=== PATIENT | male | born 1990 | race African-American/Black ===

== ENCOUNTER 2018-10-16 19:13 | Emergency (ER) | payer MEDICAID ==
[~2018-10-16] VITALS: Ht 182.9 cm; Wt 68.0 kg
[2018-10-16 19:44] VITALS: BP 117/73
--- NOTE | 2018-10-16 19:44 | NUR ---
ER Nurse Note: Pt came from home wtih wheelchair c/o enlarge left testicle since 10/13. Pt stated he has 10/10 pain, and "might have sat on it wrong". Pt was seen at [facility] today for same reason. ERMD at pt side; will continue to [facility].
[2018-10-16] MEDS ORDERED: HYDROcodone/Acetamin 5/325 tab ORAL ONE (19:45)
--- NOTE | 2018-10-16 20:14 | Emergency Room Report ---
History of Present Illness General Chief Complaint: Male Urogenital Problems Source: Patient Present Illness HPI Patient presented with a swelling of the testicles. This started 2 days ago. Denies any other associated symptoms. Does complain of pain. Denies any fever. No discharge. Apparently, he was seen at an outside hospital and got x- rays but he does not know why the x-rays were done. This was today. Allergies: Coded Allergies: No Known Allergies (Unverified , 10/16/18) Patient History Past Medical History: other - Paraplegia Pertinent Family History: none Nursing Documentation-PMH Past Medical History: No Stated History Review of Systems All Other Systems: negative except mentioned in HPI Physical Exam Vital Signs Date Time Temp Pulse Resp B/P (MAP) Pulse Ox O2 Delivery O2 Flow Rate FiO2 10/16/18 19:22 99.0 108 16 117/73 99 Room Air General Appearance: well appearing, no apparent distress Head: normocephalic, atraumatic ENT: hearing grossly normal, normal voice Neck: full range of motion, supple Respiratory: no respiratory distress, speaking full sentences Cardiovascular #1: normal inspection, no edema Genitourinary: other - Bilateral descended testicles. left appears larger then right one. Medical Decision Making Diagnostic Impression: Primary Impression: Epididymitis ER Course Patient seen and examined. Multiple bedside evaluations were done. Ultrasound was ordered emergently. I was very concerned about testicular torsion. The discussing the findings, it appears that the patient may have orchitis versus epididymitis. We will start the patient antibodies. He is given an initial dose of IM Rocephin. And he will be discharged on doxycycline. And pain medication. Last Vital Signs Date Time Temp Pulse Resp B/P (MAP) Pulse Ox O2 Delivery O2 Flow Rate FiO2 10/16/18 19:44 99.0 76 16 117/73 99 Room Air Disposition: HOME, SELF-CARE Condition: Stable Scripts Hydrocodone/Acetaminophen 7.5-325* (HYDROCODON-ACETAMINOPH 7.5-325*) 1 Each Tablet 1 TAB ORAL Q6H PRN for For Pain, #30 TAB 0 Refills Prov: KENDAL IYER 10/16/18 Doxycycline Monohydrate* (DOXYCYCLINE MONOHYDRATE*) 100 Mg Capsule 100 MG ORAL Q12H for 10 Days, #20 CAP 0 Refills Prov: KENDAL IYER 10/16/18 Patient Instructions: Epididymitis KENDAL IYER Oct 16, 2018 20:14
[2018-10-16] MEDS ORDERED: Lidocaine 1% MPF 10mg/ml 5ml INJ ONE (20:15)
[2018-10-16] MEDS ORDERED: HYDROCODON-ACE1 EA16 ORAL ×2 (20:47→20:50)
[2018-10-16] MEDS ORDERED: DOXYCYCLINE MO100 MG ORAL (20:47)
[2018-10-16 21:05] VITALS: BP 120/70
--- NOTE | 2018-10-16 21:05 | NUR ---
ER Nurse Note: Pt seen, treated, medically cleared for discharge by ERMD. Discharge instructions and prescriptions given with repeat verbalization by pt. Instructed pt to follow up with primary care provider within one week. Pt a&ox4, VSS, no signs of distress. ID band removed. Pt left with own transportation.
--- NOTE | 2018-10-16 22:50 | NUR ---
ER Nurse Note: Urine sent to lab. Per lab, urine test is sent out and results will not be ready. Pain meds and antibiotics given; tolerated well. Pt ready for discharge.
--- NOTE | 2018-10-17 10:21 | Diagnostic Imaging Report ---
Indications: Scrotal pain Technique: Grayscale and duplex images of the scrotum Comparison: none Findings:The right testicle measures 3.8cm in length. It demonstrates normal echogenicity. It is equivocally slightly hyperemic. Normal epididymis. There is a small right scrotal hydrocele The left testicle measures 3.9 cm in length. It demonstrates normal echogenicity. It appears somewhat hyperemic. Prominent hyperemic epididymis. There is a moderate to large septated hydrocele with debris Impression: Hyperemic left testicle and epididymis, small right-sided hydrocele suspicious for orchitis/epididymitis Septated moderate-sized left hydrocele with debris; infected hydrocele possible. Equivocally slightly hyperemic right testicle. Mild right-sided orchitis also possible. Negative for evidence of testicular torsion This agrees with the preliminary interpretation provided overnight by [facility].
== END 2018-10-16 21:05 | disposition home or self-care (01) ==
LOC: EMR 19:40
DX: N45.1 Epididymitis (principal); G82.20 Paraplegia, unspecified
CPT/HCPCS: 76870; 96372; 96374; 99284; J0696

== ENCOUNTER 2019-02-03 21:11 | Emergency (ER) | payer MEDICAID ==
[~2019-02-03] VITALS: Ht 185.4 cm; Wt 77.1 kg
[~2019-02-03 21:11] MED LIST: DOXYCYCLINE MO100 MG ORAL; HYDROCODON-ACE1 EA16 ORAL
--- NOTE | 2019-02-03 21:13 | NUR ---
ED Nurse Note: Patient presents with complaints of constipation for 3 days. Patient is wheel-chair bound.
[2019-02-03 21:29] VITALS: BP 115/64
[2019-02-03] MEDS ORDERED: Fleet's Mineral Oil Enema RECTAL ONE (21:45)
[2019-02-03 22:13] LABS: BASOPHILS % (AUTO) 1.8 % (0.0-2.0); EOSINOPHILS % (AUTO) 2.6 % (0.0-3.0); HEMATOCRIT 39.5 % (42.0-52.0); HEMOGLOBIN 13.4 G/DL (14.2-18.0); LYMPHOCYTES % (AUTO) 42.7 % (20.0-45.0); MEAN CORPUSCULAR VOLUME 90 FL (80-99); MONOCYTES % (AUTO) 12.3 % (1.0-10.0); NEUTROPHILS % (AUTO) 40.6 % (45.0-75.0); PLATELET COUNT 236 K/UL (150-450); RED BLOOD COUNT 4.41 M/UL (4.70-6.10); RED CELL DISTRIBUTION WIDTH 13.9 % (11.6-14.8); WHITE BLOOD COUNT 5.2 K/UL (4.8-10.8)
[2019-02-03] MEDS ORDERED: Fleet's Enema 133ml RECTAL ONE (22:15)
--- NOTE | 2019-02-03 22:16 | NUR ---
ED Nurse Note: Patient tolerated enema well. Patient's uncle is at bedside.
[2019-02-03 22:40] LABS: ANION GAP 8 mmol/L (5-15); BLOOD UREA NITROGEN 20 mg/dL (7-18); CALCIUM 8.6 MG/DL (8.5-10.1); CARBON DIOXIDE 28 MMOL/L (21-32); CHLORIDE 105 MMOL/L (98-107); SODIUM 141 MMOL/L (136-145)
--- NOTE | 2019-02-03 22:42 | Diagnostic Imaging Report ---
EXAM: XR Abdomen, 2 Views CLINICAL HISTORY: Constipation TECHNIQUE: Frontal view of the abdomen/pelvis with upright view of the abdomen. COMPARISON: No relevant prior studies available. FINDINGS: Gastrointestinal tract: Moderate amount of stool in the colon. No dilation. Organs: Cholecystectomy clips. Bones/joints: Unremarkable. IMPRESSION: Moderate amount of stool in the colon
[2019-02-03 22:45] LABS: ALANINE AMINOTRANSFERASE 21 U/L (12-78); ALBUMIN 3.7 G/DL (3.4-5.0); ALBUMIN/GLOBULIN RATIO 1.1 (1.0-2.7); ALKALINE PHOSPHATASE 100 U/L (46-116); ASPARTATE AMINO TRANSFERASE 21 U/L (15-37); BILIRUBIN,TOTAL 0.4 MG/DL (0.2-1.0)
--- NOTE | 2019-02-03 23:17 | NUR ---
ED Nurse Note: Patient is passing gas and expelling some fecal matter. perineal care provider along with a clean diaper.
--- NOTE | 2019-02-04 00:20 | NUR ---
ED Nurse Note: Patient resting comfortably, vital signs are stable.
[2019-02-04 00:46] VITALS: BP 132/76
[2019-02-04 00:54] LABS: APPEARANCE,URINE CLEAR; BILIRUBIN, URINE NEGATIVE (NEGATIVE); COLOR,URINE PALE YELLOW; GLUCOSE, URINE (UA) NEGATIVE (NEGATIVE); KETONES,URINE NEGATIVE (NEGATIVE); LEUKOCYTE ESTERASE ,URINE 1+ (NEGATIVE); NITRITE,URINE NEGATIVE (NEGATIVE); PH,URINE 5 (4.5-8.0); PROTEIN,URINE 2+ (NEGATIVE); UROBILINOGEN,URINE 1 MG/DL (0.0-1.0)
--- NOTE | 2019-02-04 01:11 | NUR ---
ED Nurse Note: Patient is resting comfortably awaiting lab results, Patient uncle is at bedside.
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
[2019-02-04] MEDS ORDERED: LACTULOSE20 GM/301 ORAL (01:24)
--- NOTE | 2019-02-04 01:41 | NUR ---
ED Nurse Note: Patient cleared for discharge, Patient verbalized understanding of discharge instructions. Patient ID band removed, IV removed. Divya departed with all personal belongings accompanied by his uncle.
== END 2019-02-04 01:41 | disposition home or self-care (01) ==
LOC: EMR 22:20
DX: K59.00 Constipation, unspecified (principal); G82.20 Paraplegia, unspecified; F15.10 Other stimulant abuse, uncomplicated; D64.9 Anemia, unspecified; F12.90 Cannabis use, unspecified, uncomplicated
CPT/HCPCS: 36415; 74018; 80053; 80307; 81003; 83690; 85025; 96360; 99284